=== PATIENT | male | born 1990 | race Caucasian/White ===

== ENCOUNTER 2022-05-23 15:28 | Inpatient (IN) | payer MEDICARE, MEDICAID ==
[~2022-05-23] VITALS: Ht 165.1 cm; Wt 54.0 kg
[2022-05-23] MEDS ORDERED: ATIVAN (15:34)
[2022-05-23] MEDS ORDERED: KEPPRA (15:34)
[2022-05-23] MEDS ORDERED: LEVETIRACETAM 1000MG PREMIX 100 ML IV ONE (16:30)
[2022-05-23] MEDS ORDERED: SODIUM CHLORIDE 0.9% 1,000 ML IV ONE ×2 (16:30→21:00)
[2022-05-23] MEDS ORDERED: LORAZEPAM 2MG/ML CPJ IV ONE (16:45)
[2022-05-23 17:32] LABS: BASOPHILS % 0.3 % (0.0-2.0); EOSINOPHILS % 0.1 % (0.0-5.0); HEMATOCRIT. 49.5 % (42.0-52.0); MEAN CORPUSCULAR HEMOGLOBIN 31.4 pg (28.0-32.0); MEAN CORPUSCULAR VOLUME 91.4 fL (80.0-94.0); MEAN PLATELET VOLUME 9.4 fl (7.4-10.4); NEUTROPHILS % 85.6 % (40.0-76.0); PLATELET 271 x1000/uL (130-400); RED BLOOD CELL COUNT 5.41 mill/uL (4.7-6.1); RED CELL DISTRIBUTION WIDTH 13.4 % (11.6-14.6)
[2022-05-23 17:53] LABS: CHLORIDE 105 mEq/L (98-107)
[2022-05-23] MEDS ORDERED: IPRATROPIUM BROMIDE (0.02%) 0.5MG/2.5ML NEB HHN STA (18:32)
[2022-05-23] MEDS ORDERED: ALBUTEROL (0.083%) 2.5MG/3ML NEB HHN STA (18:32)
[2022-05-23] MEDS ORDERED: KETOROLAC 15MG/ML VIAL IV ONE (19:45)
[2022-05-23] MEDS ORDERED: DIPHENHYDRAMINE 50MG/ML VIAL IV PRN (20:15)
[2022-05-23] MEDS ORDERED: MAGNESIUM/ALUMINUM HYDROXIDE/SIMETHICONE 30ML UDC PO PRN (20:15)
[2022-05-23] MEDS ORDERED: ACETAMINOPHEN 650MG/20.3ML UDC PEG PRN (20:15)
[2022-05-23] MEDS ORDERED: GUAIFENESIN 200MG/10ML SUGAR FREE UDC PO PRN (20:15)
[2022-05-23] MEDS ORDERED: CLONIDINE 0.1MG TABLET PO PRN (20:15)
[2022-05-23] MEDS ORDERED: ACETAMINOPHEN 325MG TABLET PEG PRN (20:15)
[2022-05-23] MEDS ORDERED: MORPHINE SULFATE 2 MG/ML CPJ (NOT FOR IM USE) IV PRN (20:15)
[2022-05-23] MEDS ORDERED: HYDROCODONE/ACETAMINOPHEN 5/325MG TABLET PEG PRN (20:15)
[2022-05-23] MEDS ORDERED: ONDANSETRON HCL 4MG/2ML INJ IV PRN (20:15)
[2022-05-23] MEDS ORDERED: NA PHOS,M-B/NA PHOS,DI-BA ENEMA 118ML PR PRN (20:15)
[2022-05-23] MEDS ORDERED: DOCUSATE SODIUM 100MG CAPSULE PO PRN (20:15)
[2022-05-23] MEDS ORDERED: NALOXONE HCL 0.4MG/ML VIAL IV PRN (20:30)
[2022-05-23] MEDS ORDERED: LORAZEPAM 2MG/ML CPJ IV PRN (20:30)
[2022-05-23] MEDS ORDERED: LORAZEPAM 2MG/ML CPJ IV NR (20:30)
[2022-05-24] MEDS ORDERED: HYDRALAZINE 20MG/ML VIAL IV PRN (01:00)
[2022-05-24] MEDS ORDERED: LEVETIRACETAM 500MG PREMIX 100 ML IV SCH (06:00)
[2022-05-24 06:35] LABS: BASOPHILS % 0.3 % (0.0-2.0); EOSINOPHILS % 0.2 % (0.0-5.0); HEMATOCRIT. 45.5 % (42.0-52.0); HEMOGLOBIN. 15.1 g/dL (14.0-18.0); MEAN CORPUSCULAR HEMOGLOBIN 30.7 pg (28.0-32.0); MEAN CORPUSCULAR VOLUME 92.5 fL (80.0-94.0); MEAN PLATELET VOLUME 8.9 fl (7.4-10.4); MONOCYTES % 6.9 % (2.0-8.0); NEUTROPHILS % 82.6 % (40.0-76.0); PLATELET 215 x1000/uL (130-400); RED BLOOD CELL COUNT 4.92 mill/uL (4.7-6.1); RED CELL DISTRIBUTION WIDTH 13.2 % (11.6-14.6)
[2022-05-24 06:46] LABS: CHLORIDE 111 mEq/L (98-107)
[2022-05-24 06:57] LABS: CREATINE KINASE 264 IU/L (39-308)
[2022-05-24] MEDS ORDERED: PANTOPRAZOLE SODIUM 40 MG/VIAL IV SCH (09:00)
[2022-05-24 09:50] VITALS: BP 105/96
[2022-05-24] MEDS ORDERED: FAMO20TA8 PO (10:52)
[2022-05-24] MEDS ORDERED: LORA2DIS6 SQ (10:52)
[2022-05-24] MEDS ORDERED: ALBU90AE INH (10:52)
[2022-05-24] MEDS ORDERED: KEPP250 MT (10:52)
[2022-05-24 12:00] VITALS: BP 105/96
[2022-05-24] MEDS ORDERED: GLYC2TAB21 MT (12:13)
[2022-05-24] MEDS: ENOXAPARIN 40MG/0.4ML SYR SUBCUT SCH (12:48)
[2022-05-24 16:00] VITALS: BP 148/79
[2022-05-24] MEDS: LEVETIRACETAM 500MG TABLET PO SCH (21:42)
[2022-05-25] VITALS: BP 138/68
[2022-05-25 04:00] VITALS: BP 120/72
[2022-05-25] MEDS ORDERED: PANTOPRAZOLE 40MG DR TABLET PO SCH (07:40)
[2022-05-25 08:00] VITALS: BP 121/74
[2022-05-25] MEDS: LEVETIRACETAM 500MG TABLET PO SCH ×2 (08:20→21:51)
[2022-05-25] MEDS: ENOXAPARIN 40MG/0.4ML SYR SUBCUT SCH (09:00)
[2022-05-25 12:00] VITALS: BP 106/60
[2022-05-25] MEDS ORDERED: LIDOCAINE HCL/PF 1% 10 MG/ML 5ML VIAL ONE (12:46)
[2022-05-25] MEDS ORDERED: IOHEXOL-350 100 ML BOTTLE ONE (14:29)
[2022-05-25 16:00] VITALS: BP 112/58
[2022-05-25 20:00] VITALS: BP 169/115
[2022-05-26] VITALS (7 sets, daily range): BP systolic 110–126; BP diastolic 46–75
[2022-05-26] MEDS: IPRATROPIUM/ALBUTEROL 0.5-3(2.5)MG/3ML NEB NEB PRN ×2 (02:14→14:40)
[2022-05-26] MEDS: LANSOPRAZOLE 30MG DR CAPSULE GT SCH ×2 (07:52→10:10)
[2022-05-26 08:16] LABS: BASOPHILS % 0.3 % (0.0-2.0); EOSINOPHILS % 0.1 % (0.0-5.0); HEMOGLOBIN. 16.4 g/dL (14.0-18.0); LYMPHOCYTES % 12.9 % (20.0-50.0); MEAN CORPUSCULAR HEMOGLOBIN 31.1 pg (28.0-32.0); MEAN CORPUSCULAR VOLUME 93.1 fL (80.0-94.0); MEAN PLATELET VOLUME 9.4 fl (7.4-10.4); NEUTROPHILS % 75.7 % (40.0-76.0); PLATELET 259 x1000/uL (130-400); RED BLOOD CELL COUNT 5.26 mill/uL (4.7-6.1); RED CELL DISTRIBUTION WIDTH 13.5 % (11.6-14.6)
[2022-05-26 09:29] LABS: CHLORIDE 115 mEq/L (98-107)
[2022-05-26] MEDS: LEVETIRACETAM 500MG TABLET PO SCH ×2 (10:10→21:36)
[2022-05-26] MEDS: ENOXAPARIN 40MG/0.4ML SYR SUBCUT SCH (10:10)
[2022-05-27] VITALS: BP 126/70
[2022-05-27 04:00] VITALS: BP 132/76
[2022-05-27 07:11] LABS: BASOPHILS % 0.3 % (0.0-2.0); HEMATOCRIT. 48.5 % (42.0-52.0); HEMOGLOBIN. 16.7 g/dL (14.0-18.0); LYMPHOCYTES % 9.1 % (20.0-50.0); MEAN CORPUSCULAR HEMOGLOBIN 31.4 pg (28.0-32.0); MEAN CORPUSCULAR VOLUME 91.3 fL (80.0-94.0); MONOCYTES % 9.7 % (2.0-8.0); NEUTROPHILS % 80.9 % (40.0-76.0); PLATELET 282 x1000/uL (130-400); RED BLOOD CELL COUNT 5.31 mill/uL (4.7-6.1); RED CELL DISTRIBUTION WIDTH 13.7 % (11.6-14.6)
[2022-05-27 08:00] VITALS: BP 117/61
[2022-05-27] MEDS: LEVETIRACETAM 500MG TABLET PO SCH (08:43)
[2022-05-27] MEDS: ENOXAPARIN 40MG/0.4ML SYR SUBCUT SCH (08:49)
[2022-05-27 12:00] VITALS: BP 115/65
[2022-05-27 15:56] LABS: CHLORIDE 114 mEq/L (98-107)
== END 2022-05-27 13:46 | disposition home or self-care (01) | DRG 101 ==
LOC: ER 15:28 → MICUSO 19:18 → EDBEDREQTM 19:23 → EDBEDREQSVC 19:23 → EDBEDREQ 19:23 → 7WST 05-24 09:45
PROVIDERS: ADMIT Hospitalist; ATTEND Hospitalist
PROC: 02HV33Z Insertion of Infusion Device into Superior Vena Cava, Percutaneous Approach (ICD-10-PCS; principal; 2022-05-25)
PROC: B5181ZA Fluoroscopy of Superior Vena Cava using Low Osmolar Contrast, Guidance (ICD-10-PCS; 2022-05-25)
PROC: B548ZZA Ultrasonography of Superior Vena Cava, Guidance (ICD-10-PCS; 2022-05-25)
DX: G40.909 Epilepsy, unspecified, not intractable, without status epilepticus (principal); E83.41 Hypermagnesemia; E88.09 Other disorders of plasma-protein metabolism, not elsewhere classified; D72.829 Elevated white blood cell count, unspecified; R13.11 Dysphagia, oral phase; R32 Unspecified urinary incontinence; Z93.1 Gastrostomy status; Z20.822 Contact with and (suspected) exposure to COVID-19; Z79.899 Other long term (current) drug therapy
CPT/HCPCS: 36415; 36573; 71045; 71275; 80048; 80053; 82542; 82550; 83735; 84100; 84443; 85025; 85379; 87426; 93005; 93306; 93970; 94640; 97165; 99285; C1725; C9113; J0360; J1650; J1885; J1953; J2060; J3490; J7030; Q9967

== ENCOUNTER 2022-08-31 10:54 | Inpatient (IN) | payer MEDICARE, MEDICAID ==
[~2022-08-31] VITALS: Ht 152.4 cm; Wt 45.5 kg
[~2022-08-31 10:54] MED LIST: ALBU90AE INH; ATIVAN; FAMO20TA8 PO; GLYC2TAB21 MT; KEPP250 MT; KEPPRA; LORA2DIS6 SQ
[2022-08-31] MEDS ORDERED: LEVETIRACETAM 500MG PREMIX 100 ML IV ONE (11:15)
[2022-08-31 11:56] LABS: BASOPHILS % 0.2 % (0.0-2.0); EOSINOPHILS % 0.1 % (0.0-5.0); HEMATOCRIT. 51.4 % (42.0-52.0); LYMPHOCYTES % 7.3 % (20.0-50.0); MEAN CORPUSCULAR HEMOGLOBIN 30.6 pg (28.0-32.0); MEAN CORPUSCULAR VOLUME 92.5 fL (80.0-94.0); MEAN PLATELET VOLUME 10.4 fl (7.4-10.4); MONOCYTES % 5.9 % (2.0-8.0); NEUTROPHILS % 86.5 % (40.0-76.0); PLATELET 272 x1000/uL (130-400); RED BLOOD CELL COUNT 5.56 mill/uL (4.7-6.1); RED CELL DISTRIBUTION WIDTH 13.6 % (11.6-14.6)
[2022-08-31] MEDS ORDERED: SODIUM CHLORIDE 0.9% 1000ML BAG (SEPSIS BOLUS) IV ONE (12:00)
[2022-08-31] MEDS ORDERED: LORAZEPAM 2MG/ML CPJ IV ONE ×2 (12:00→17:00)
[2022-08-31 12:04] LABS: CHLORIDE 109 mEq/L (98-107)
[2022-08-31 12:16] LABS: CLARITY URINE CLEAR (CLEAR); COLOR URINE DARK YELLOW (YELLOW); KETONES URINE TRACE (NEGATIVE); LEUKOCYTE ESTERASE URINE NEGATIVE (NEGATIVE); NITRITE URINE NEGATIVE (NEGATIVE); OCCULT BLOOD URINE NEGATIVE (NEGATIVE); PROTEIN URINE 1+ (NEGATIVE); SPECIFIC GRAVITY URINE 1.033 (1.005-1.030)
[2022-08-31 12:16] LABS: ETHANOL BLOOD < 10 mg/dL
[2022-08-31] MEDS ORDERED: CEFTRIAXONE 1GM PREMIX 50 ML IV ONE (13:15)
[2022-08-31] MEDS ORDERED: AZITHROMYCIN 500 MG in DEXT 5% WATER 250 ML IV SCH ×2 (13:45→20:15)
[2022-08-31] MEDS ORDERED: CEFTRIAXONE 1,000 MG in DEXTROSE 5% WATER 50 ML IV NR (13:45)
[2022-08-31 14:45] LABS: *AMPHETAMINES SCREEN URINE NEGATIVE (NEGATIVE); *BARBITURATES SCREEN URINE NEGATIVE (NEGATIVE); *BENZODIAZEPINES SCREEN URINE NEGATIVE (NEGATIVE); *COCAINE SCREEN URINE NEGATIVE (NEGATIVE); CANNABINOID URINE SCREEN NEGATIVE (NEGATIVE); METHADONE URINE SCREEN NEGATIVE (NEGATIVE); OPIATES URINE SCREEN NEGATIVE (NEGATIVE); PHENCYCLIDINE URINE SCREEN NEGATIVE (NEGATIVE)
[2022-08-31] MEDS ORDERED: DOCUSATE SODIUM 100MG CAPSULE PO PRN ×2 (20:15→20:30)
[2022-08-31] MEDS ORDERED: ENOXAPARIN 40MG/0.4ML SYR SUBCUT SCH ×2 (20:15→20:30)
[2022-08-31] MEDS ORDERED: ONDANSETRON HCL 4MG/2ML INJ IV PRN ×2 (20:15→20:30)
[2022-08-31] MEDS ORDERED: IPRATROPIUM/ALBUTEROL 0.5-3(2.5)MG/3ML NEB NEB PRN (20:15)
[2022-08-31] MEDS ORDERED: CEFTRIAXONE 1GM PREMIX 50 ML IV SCH ×2 (20:15→20:30)
[2022-08-31] MEDS ORDERED: GUAIFENESIN 200MG/10ML SUGAR FREE UDC PO PRN ×2 (20:15→20:30)
[2022-08-31] MEDS ORDERED: SODIUM CHLORIDE 0.45% 1,000 ML IV SCH (20:15)
[2022-08-31] MEDS ORDERED: TRAMADOL 50MG TABLET PO PRN (20:15)
[2022-08-31] MEDS ORDERED: ACETAMINOPHEN 650MG/20.3ML UDC GT PRN (20:30)
[2022-08-31] MEDS ORDERED: NALOXONE HCL 0.4MG/ML VIAL IV PRN (20:30)
[2022-08-31] MEDS: PANTOPRAZOLE SODIUM 40 MG/VIAL IV SCH (21:48)
[2022-08-31] MEDS: SODIUM CHLORIDE 0.45% 1,000 ML IV SCH (21:48)
[2022-09-01 02:50] VITALS: BP 100/53
[2022-09-01 08:00] VITALS: BP 107/59
[2022-09-01] MEDS ORDERED: LEVETIRACETAM 250MG TABLET PEG SCH (09:00)
[2022-09-01] MEDS: LORAZEPAM 2MG/ML CPJ IV PRN ×3 (09:48→14:40)
[2022-09-01 10:13] LABS: BASOPHILS % 0.2 % (0.0-2.0); EOSINOPHILS % 0.4 % (0.0-5.0); HEMATOCRIT. 45.5 % (42.0-52.0); HEMOGLOBIN. 15.4 g/dL (14.0-18.0); LYMPHOCYTES % 15.4 % (20.0-50.0); MEAN CORPUSCULAR VOLUME 91.8 fL (80.0-94.0); MEAN PLATELET VOLUME 9.7 fl (7.4-10.4); PLATELET 228 x1000/uL (130-400); RED BLOOD CELL COUNT 4.96 mill/uL (4.7-6.1); RED CELL DISTRIBUTION WIDTH 13.4 % (11.6-14.6)
[2022-09-01 10:38] LABS: CHLORIDE 112 mEq/L (98-107)
[2022-09-01 10:54] LABS: HDL CHOLESTEROL 46 mg/dL (40-59); LDL CHOLESTEROL 71 mg/dL (5-100)
[2022-09-01 12:00] VITALS: BP 101/54
[2022-09-01] MEDS: AZITHROMYCIN 500 MG in DEXT 5% WATER 250 ML IV SCH (14:42)
[2022-09-01] MEDS: CEFTRIAXONE 1,000 MG in DEXTROSE 5% WATER 50 ML IV SCH (14:42)
[2022-09-01] MEDS: LEVETIRACETAM 500MG/5ML CUP PEG SCH ×2 (14:43→18:07)
[2022-09-01] MEDS: METFORMIN HCL 500MG TABLET PEG SCH ×2 (14:45→18:07)
[2022-09-01] MEDS: SODIUM CHLORIDE 0.45% 1,000 ML IV SCH (14:45)
[2022-09-01 16:00] VITALS: BP 106/62
[2022-09-01] MEDS: ENOXAPARIN 30MG/0.3ML SYR SUBCUT SCH (18:07)
[2022-09-01] MEDS ORDERED: IPRATROPIUM BROMIDE (0.02%) 0.5MG/2.5ML NEB HHN PRN (19:00)
[2022-09-01] MEDS ORDERED: ALBUTEROL (0.083%) 2.5MG/3ML NEB HHN PRN (19:00)
[2022-09-01 20:00] VITALS: BP 108/66
[2022-09-01] MEDS: PANTOPRAZOLE SODIUM 40 MG/VIAL IV SCH (22:41)
[2022-09-02] VITALS: BP 103/75
[2022-09-02] MEDS: ACETAMINOPHEN 325MG TABLET PO PRN ×2 (00:30→06:56)
[2022-09-02] MEDS: LORAZEPAM 2MG/ML CPJ IV PRN ×3 (03:43→12:14)
[2022-09-02 04:00] VITALS: BP 107/77
[2022-09-02] MEDS: SODIUM CHLORIDE 0.45% 1,000 ML IV SCH ×2 (06:13→22:29)
[2022-09-02 08:00] VITALS: BP 98/42
[2022-09-02] MEDS: CEFTRIAXONE 1,000 MG in DEXTROSE 5% WATER 50 ML IV SCH (08:38)
[2022-09-02] MEDS: LEVETIRACETAM 500MG/5ML CUP PEG SCH ×2 (08:38→16:43)
[2022-09-02] MEDS: METFORMIN HCL 500MG TABLET PEG SCH (08:38)
[2022-09-02] MEDS ORDERED: LIDOCAINE HCL 1% 10 MG/ML 10ML VIAL ONE (09:21)
[2022-09-02] MEDS: METRONIDAZOLE 500MG TABLET PEG SCH ×3 (10:00→16:43)
[2022-09-02] MEDS: AZITHROMYCIN 500 MG in DEXT 5% WATER 250 ML IV SCH (11:26)
[2022-09-02 12:00] VITALS: BP 106/64
[2022-09-02 16:00] VITALS: BP 140/69
[2022-09-02] MEDS: ENOXAPARIN 30MG/0.3ML SYR SUBCUT SCH (16:43)
[2022-09-02 20:00] VITALS: BP 111/51
[2022-09-02] MEDS: PANTOPRAZOLE SODIUM 40 MG/VIAL IV SCH (20:08)
[2022-09-03] VITALS (7 sets, daily range): BP systolic 90–118; BP diastolic 46–77
[2022-09-03] MEDS: CEFTRIAXONE 1,000 MG in DEXTROSE 5% WATER 50 ML IV SCH (08:20)
[2022-09-03] MEDS: LEVETIRACETAM 500MG/5ML CUP PEG SCH ×2 (08:41→16:28)
[2022-09-03] MEDS: METRONIDAZOLE 500MG TABLET PEG SCH ×3 (08:42→16:25)
[2022-09-03] MEDS: AZITHROMYCIN 500 MG in DEXT 5% WATER 250 ML IV SCH (10:53)
[2022-09-03] MEDS: LORAZEPAM 2MG/ML CPJ IV PRN ×3 (11:32→20:02)
[2022-09-03] MEDS: SODIUM CHLORIDE 0.45% 1,000 ML IV SCH (15:33)
[2022-09-03] MEDS: ENOXAPARIN 30MG/0.3ML SYR SUBCUT SCH (17:01)
[2022-09-03] MEDS: PANTOPRAZOLE SODIUM 40 MG/VIAL IV SCH (20:53)
[2022-09-04] VITALS: BP 101/47
[2022-09-04 04:00] VITALS: BP 91/56
[2022-09-04 08:00] VITALS: BP 90/34
[2022-09-04] MEDS: LEVETIRACETAM 500MG/5ML CUP PEG SCH ×4 (08:06→20:23)
[2022-09-04] MEDS: METRONIDAZOLE 500MG TABLET PEG SCH ×3 (08:06→16:10)
[2022-09-04] MEDS: CEFTRIAXONE 1,000 MG in DEXTROSE 5% WATER 50 ML IV SCH (08:08)
[2022-09-04] MEDS: SODIUM CHLORIDE 0.45% 1,000 ML IV SCH (08:08)
[2022-09-04] MEDS: AZITHROMYCIN 500 MG in DEXT 5% WATER 250 ML IV SCH (10:14)
[2022-09-04] MEDS: LORAZEPAM 2MG/ML CPJ IV PRN ×3 (10:39→19:52)
[2022-09-04 12:00] VITALS: BP 100/51
[2022-09-04 16:00] VITALS: BP 109/73
[2022-09-04] MEDS: ENOXAPARIN 30MG/0.3ML SYR SUBCUT SCH (17:16)
[2022-09-04 20:00] VITALS: BP 91/42
[2022-09-04] MEDS: PANTOPRAZOLE SODIUM 40 MG/VIAL IV SCH (20:23)
[2022-09-05] MEDS: SODIUM CHLORIDE 0.45% 1,000 ML IV SCH ×2 (00:40→16:45)
[2022-09-05 00:48] VITALS: BP 100/55
[2022-09-05 04:00] VITALS: BP 88/53
[2022-09-05 08:00] VITALS: BP 97/57
[2022-09-05] MEDS ORDERED: CEFTRIAXONE 1,000 MG in DEXTROSE 5% WATER 50 ML IV SCH (08:00)
[2022-09-05] MEDS: METRONIDAZOLE 500MG TABLET PEG SCH ×3 (08:12→16:44)
[2022-09-05] MEDS ORDERED: LEVETIRACETAM 500MG/5ML CUP PEG SCH (09:00)
[2022-09-05] MEDS: LORAZEPAM 2MG/ML CPJ IV PRN (11:59)
[2022-09-05 12:00] VITALS: BP 107/57
[2022-09-05 14:31] LABS: BG BASE EXCESS -2.2 mmol/L (-2.0-2.0); BG CARBOXYHEMOGLOBIN 0.2 % (0.5-1.5); BG DEOXYHEMOGLOBIN 5.7 % (0.0-5.0); BG FRACTION INSPIRED OXYGEN 21; BG HCO3 ACT 21.4 mmol/L (22.0-26.0); BG METHEMOGLOBIN 0.2 % (0.0-1.5); BG OXYGEN SATURATION 94.3 % (92.0-98.5); BG OXYHEMOGLOBIN 93.9 % (94.0-97.0); BG PCO2 33.7 mmHg (35.0-45.0); BG PO2 66.9 mmHg (75.0-100.0); BG SAMPLE SITE LEFT BRACHIAL; BG TOTAL HEMOGLOBIN 16.3 g/dL (12.0-18.0); BG VENT MODE ROOM AIR
[2022-09-05 16:00] VITALS: BP 105/80
[2022-09-05 16:14] VITALS: BP 105/80
[2022-09-05] MEDS ORDERED: FAMOTIDINE 20MG/2ML VIAL IV SCH (21:00)
== END 2022-09-05 18:10 | disposition home health service (06) | DRG 871 ==
LOC: ER 10:54 → MICUSO 16:41 → EDBEDREQ 17:40 → EDBEDREQTM 17:40 → 7WST 09-01 02:23
PROVIDERS: ADMIT Hospitalist; ATTEND Hospitalist
PROC: 02HV33Z Insertion of Infusion Device into Superior Vena Cava, Percutaneous Approach (ICD-10-PCS; principal; 2022-09-02)
PROC: B548ZZA Ultrasonography of Superior Vena Cava, Guidance (ICD-10-PCS; 2022-09-02)
PROC: B518ZZA Fluoroscopy of Superior Vena Cava, Guidance (ICD-10-PCS; 2022-09-02)
PROC: 2W03XYZ Change Other Device on Abdominal Wall (ICD-10-PCS; 2022-09-05)
DX: A41.9 Sepsis, unspecified organism (principal); J18.9 Pneumonia, unspecified organism; J96.01 Acute respiratory failure with hypoxia; G93.40 Encephalopathy, unspecified; K94.23 Gastrostomy malfunction; G40.909 Epilepsy, unspecified, not intractable, without status epilepticus; R13.10 Dysphagia, unspecified; G80.9 Cerebral palsy, unspecified; Z79.899 Other long term (current) drug therapy
CPT/HCPCS: 36415; 36573; 36600; 71045; 80053; 80061; 80305; 80320; 81003; 82375; 82805; 82962; 84145; 85025; 87426; 95816; 99285; A6261; C1725; C1769; C1887; C9113; C9803; J0456; J0696; J1650; J1953; J2060; J3490; J7030; J7060; G0480